=== PATIENT | male | born 1940 | race Caucasian/White ===

== ENCOUNTER 2016-12-10 08:04 | Emergency (ER) | payer OTHER ==
[2016-12-10 08:14] VITALS: BP 155/98; PULSE 72; TEMP 97.7; BMI 25.8
--- NOTE | 2016-12-10 08:31 | PDOC ---
History of Present Illness - General Chief Complaint: Weakness Stated Complaint: WEAKNESS Time Seen by Provider: 12/10/16 08:08 History Source: Patient Exam Limitations: No Limitations - History of Present Illness Initial Comments: 12/10/16 08:31 76y M presents for evaluation of intermittent malaise/fatigue, intermittent tingling of his hands/feet that tends to be worse in the morning and improves mildly throughout the day. 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 Pt states his sypmtoms have caused him to take disability as he cant work. HE came today hoping to get amditted to the hosptial for diagnosis of his symptoms. Pt denies any worsening of his symptoms. Pt denies asociated headache, neck pain, back pain, fever/chills, vision changes, cp, sob, abd pain (pt notes occasional dicomfort at the hernia site but none currently), extremiity weakness. no known cardiac history former smoker Past History - Past Medical History Allergies/Adverse Reactions: Allergies Allergy/AdvReac Type Severity Reaction Status Date / Time No Known Allergies Allergy Verified 12/10/16 08:07 Home Medications: Ambulatory Orders Gabapentin [Neurontin] 100 mg PO TID 12/10/16 Anemia: No Asthma: No Cancer: No Cardiac Disorders: No CVA: No COPD: No CHF: No Dementia: No Diabetes: No GI Disorders: No Disorders: No HTN: No Hypercholesterolemia: No Liver Disease: No Seizures: No Thyroid Disease: No Other medical history: NEUROPATHY - Surgical History Abdominal Surgery: No Appendectomy: No Cardiac Surgery: No Cholecystectomy: No Lung Surgery: No Neurologic Surgery: No Orthopedic Surgery: No - Psycho/Social/Smoking Cessation Hx Anxiety: No Suicidal Ideation: No Smoking History: Former smoker Have you smoked in the past 12 months: No If you are a former smoker, when did you quit?: 1976 Information on smoking cessation initiated: No 'Breaking Loose' booklet given: 09/02/15 Hx Alcohol Use: No Drug/Substance Use Hx: No Substance Use Type: None Hx Substance Use Treatment: No Review of Systems - Review of Systems Able to Perform ROS?: Yes Comments:: 12/10/16 08:35 Constitutional - +malaise/weakness no reported Fever, Chills, HEENT: no reported vision changes, sore throat Respiratory: no reported cough, sob, hemoptysis Cardiac: no reported chest pain, palpitations, light headedness, leg swelling Abd/GI: no reported abd pain, nausea, vomiting, blood per rectum, melena, diarrhea : no reported dysuria, frequency, discharge Musculskelatal - no reported back pain, joint swelling skin - no reported bruising, erythema, rash neurological: +tingling, no reported headache, numbness, focal weakness, ataxia , hematologic: no reported anemia, easy bruising, easy bleeding *Physical Exam - Vital Signs Last Vital Signs Temp Pulse Resp BP Pulse Ox 97.7 F 72 18 155/98 98 12/10/16 08:10 12/10/16 08:10 12/10/16 08:10 12/10/16 08:10 12/10/16 08:10 - Physical Exam Comments: 12/10/16 08:35 GENERAL: The patient is awake, alert, and fully oriented, Nontoxic - in no acute distress. HEAD: Normocephalic, atraumatic. EYES: extraocular movements intact, sclera anicteric, conjunctiva clear. ENT: Normal voice, Moist mucous membranes. NECK: Normal range of motion, supple BACK: no focal midline or parspinal tenderness along spine. LUNGS: Breath sounds equal, clear to auscultation bilaterally. No wheezes, no rhonchi, no rales. HEART: Regular rate and rhythm, normal S1 and S2 without murmur, rub or gallop. ABDOMEN: Soft, nontender, normoactive bowel sounds. No guarding, no rebound. . No CVA tenderness EXTREMITIES: Normal range of motion, no edema. No clubbing or cyanosis. No cords, erythema, or tenderness. PSYCH: Normal mood, normal affect. SKIN: Warm, Dry, normal turgor NEURO: Mental status: The patient is oriented x3. Cranial nerves: Cranial nerves II through XII are intact Motor: The upper extremities are 5 over 5 in all muscle groups. The lower extremities are 5 over 5 in all muscle groups. Negative pronator drift Sensation: Sensation is intact to light touch throughout. romberg negative Gait: Normal. Heel and toe walking are normal. Tandem gait is normal. Medical Decision Making - Medical Decision Making 12/10/16 08:36 unclear cuase of the pts symptoms offered to draw labs for the pt, but pt states if he will not get admitted he does not want lab work. will dfer lab work at this time as pt has had multiple blood work in the past and has had no change in his chronic sypmtoms will have pt fu with his PMD and neurologist will have pt continue taking his gabapentin Return precautions were discussed I discussed the physical exam findings, ancillary test results and final diagnoses with the patient. I answered all of the patient's questions. The patient was satisfied with the care received and felt comfortable with the discharge plan and treatment plan. The patient will call their primary care physician within 24 hours to arrange follow-up and will return to the Emergency Department with any new, persistent or worsening symptoms. *DC/Admit/Observation/Transfer Diagnosis at time of Disposition: Malaise and fatigue, Paresthesias - Discharge Dispostion Condition at time of disposition: Stable Admit: No - Referrals Referrals: Curt Valiente MD [Primary Care Provider] - - Patient Instructions Printed Discharge Instructions: DI for Numbness/tingling Additional Instructions: Return to the emergency department immediately with ANY new, persistent or worsening symptoms. Continue taking your mediations as prescribed by your neurologist You MUST call and follow up with your doctor and your neurologist as scheduled for further evaluation of your symptoms. Results were discussed with you. Please make sure your doctor reviews the results of your emergency evaluation. Print Language: MACEDONIAN
== END 2016-12-10 08:38 | disposition home or self-care (01) ==
LOC: FER 08:04
DX: R53.81 Other malaise (principal); R53.83 Other fatigue; R20.2 Paresthesia of skin; Z87.891 Personal history of nicotine dependence
CPT/HCPCS: 99281-25

== ENCOUNTER 2017-08-20 20:39 | Emergency (ER) | payer OTHER ==
[2017-08-20 20:56] VITALS: BP 170/88; PULSE 83; TEMP 97.8; BMI 25.1
[2017-08-20 21:19] LABS: BASO % 0.3 % (0-2.0); EOS % 1.3 % (0-4.5); LYMPH % 28.6 % (8-40); MCH 30.5 pg (25.7-33.7); MCHC 34.2 g/dl (32.0-35.9); MEAN CELL VOLUME 89.1 fl (80-96); MEAN PLT VOLUME 7.4 fl (7.5-11.1); MONO % 10.1 % (3.8-10.2); NEUT % 59.7 % (42.8-82.8); PLATELET COUNT 335 K/MM3 (134-434); RDW 12.4 % (11.9-15.9); WHITE BLOOD COUNT 10.9 K/mm3 (4.0-10.8)
--- NOTE | 2017-08-20 21:29 | PDOC ---
History of Present Illness - General History Source: Patient, Old Records Exam Limitations: No Limitations - History of Present Illness Initial Comments: 08/20/17 21:30 The patient is a 77 year old male, who presents to the emergency department with shortness of breath onset today. He reports that he attempted to go to sleep multiple times today but was unable due to the shortness of breath. He denies any recent illness or recent travel. He states that he currently also feels generally weak but notes that he has been eating well. He denies any history of depression but reports that he does feel "down". On presentation the patient is agitated and depressed at baseline but denies any suicidal or homicidal ideation. The patient denies chest pain, headache and dizziness. Denies fever, chills, nausea, vomit, diarrhea and constipation. Denies dysuria, frequency, urgency and hematuria. PAST MEDICAL HISTORY: Neuropathy PAST SURGICAL HISTORY: Inguinal hernia repair FAMILY HISTORY: no pertinent history SOCIAL HISTORY: Pt lives with family and is employed. MEDICATIONS: reviewed ALLERGIES: As per nursing notes General: No fevers or chills, no weakness, no weight loss HEENT: No change in vision. No sore throat,. No ear pain CardioVascular: (+) Shortness of breath. No chest pain Respiratory: No cough, or wheezing. Gastrointestinal: no nausea, vomiting, diarrhea or constipation, No rectal bleeding Genitourinary: No dysuria, hematuria, or frequency Musculoskeletal: No joint or muscle pain or swelling Neurologic: No headache, vertigo, dizziness or loss of consciousness Psychiatric: nor depression Skin: No rashes or easy bruising Endocrine: no increased thirst or abnormal weight change Allergic: no skin or latex allergy All other systems reviewed and normal General: Well-nourished well-developed individual, no acute distress HEENT: Throat: Normal, tonsils normal, no erythema or exudate Neck: Supple, no meningeal signs, no lymphadenopathy Eyes::Pupils equal reactive and round, extraocular motion intact Chest: Nontender to palpation Cardiac: S1-S2 normal, regular rate and rhythm, no murmurs rubs or gallops Respiratory: Lungs clear to auscultation bilateral Abdomen: Soft, nondistended, normal bowel sounds, nontender to palpation diffusely Extremities: Warm, dry, no cyanosis, clubbing, or edema Skin: No rashes Neuro: Alert and oriented x3, nonfocal exam, grossly intact, normal gait Psych: Normal mood and affect <Pete Davis - Last Filed: 08/20/17 21:37> - General History Source: Patient Exam Limitations: No Limitations - History of Present Illness Initial Comments: A portion of this note was documented by scribe services under my direction. I have reviewed the details of the note, within reason, and agree with the documentation. The case summary and management plan written by me. Assessment and plan: This is an 7-year-old male who comes in with some vague complaints of not feeling well. When pressed patient I decided that he might be short of breath but then decided he wasn't. Other than that he appeared to be somewhat depressed and said he was having difficulty sleeping. Patient however denied being suicidal or homicidal. Patient had a basic workup including echocardiogram and blood work which was negative with the exception of a potassium of 3.3. Patient was told to get some bananas and eat a banana a day and follow-up with his primary care doctor. Patient was discharged home. <Octaviano Taylor I - Last Filed: 08/20/17 22:58> - General Chief Complaint: Shortness of Breath Stated Complaint: SOB Time Seen by Provider: 08/20/17 20:47 Past History <Pete Davis - Last Filed: 08/20/17 21:37> - Past Medical History Anemia: No Asthma: No Cancer: No Cardiac Disorders: No CVA: No COPD: No CHF: No Dementia: No Diabetes: No GI Disorders: No Disorders: No HTN: No Hypercholesterolemia: No Liver Disease: No Psychiatric Problems: Yes Seizures: No Thyroid Disease: No Other medical history: NEUROPATHY - Surgical History Abdominal Surgery: Yes (INGUINAL HERNIA) Appendectomy: No Cardiac Surgery: No Cholecystectomy: No Lung Surgery: No Neurologic Surgery: No Orthopedic Surgery: No - Suicide/Smoking/Psychosocial Hx Smoking History: Former smoker Have you smoked in the past 12 months: No If you are a former smoker, when did you quit?: 1976 Information on smoking cessation initiated: No 'Breaking Loose' booklet given: 09/02/15 Hx Alcohol Use: No Drug/Substance Use Hx: No Substance Use Type: None Hx Substance Use Treatment: No <Octaviano Taylor I - Last Filed: 08/20/17 22:58> - Past Medical History Allergies/Adverse Reactions: Allergies Allergy/AdvReac Type Severity Reaction Status Date / Time No Known Allergies Allergy Verified 08/20/17 20:40 Home Medications: Ambulatory Orders Gabapentin 300 mg PO 2 CAPS HS capsule 12/11/16 Duloxetine HCl 60 mg PO BID 01/23/17 *Physical Exam - Vital Signs Last Vital Signs Temp Pulse Resp BP Pulse Ox 97.8 F 83 18 170/88 99 08/20/17 20:40 08/20/17 20:40 08/20/17 20:40 08/20/17 20:40 08/20/17 20:40 <Pete Davis - Last Filed: 08/20/17 21:37> - Vital Signs Last Vital Signs Temp Pulse Resp BP Pulse Ox 97.8 F 83 18 170/88 99 08/20/17 20:40 08/20/17 20:40 08/20/17 20:40 08/20/17 20:40 08/20/17 20:40 <Octaviano Taylor I - Last Filed: 08/20/17 22:58> ED Treatment Course - LABORATORY CBC & Chemistry Diagram: 08/20/17 20:40 08/20/17 20:40 - ADDITIONAL ORDERS Additional order review: 08/20/17 20:40 RBC 4.60 MCV 89.1 MCHC 34.2 RDW 12.4 MPV 7.4 L Neutrophils % 59.7 Lymphocytes % 28.6 Monocytes % 10.1 Eosinophils % 1.3 Basophils % 0.3 <Pete Davis - Last Filed: 08/20/17 21:37> - LABORATORY CBC & Chemistry Diagram: 08/20/17 20:40 08/20/17 20:40 - ADDITIONAL ORDERS Additional order review: 08/20/17 20:40 RBC 4.60 MCV 89.1 MCHC 34.2 RDW 12.4 MPV 7.4 L Neutrophils % 59.7 Lymphocytes % 28.6 Monocytes % 10.1 Eosinophils % 1.3 Basophils % 0.3 <Octaviano Taylor I - Last Filed: 08/20/17 22:58> *DC/Admit/Observation/Transfer - Attestations Scribe Attestion: 08/20/17 21:31 Documentation prepared by Pete Davis, acting as medical insurance claims processor for Octaviano Taylor MD <Pete Davis - Last Filed: 08/20/17 21:37> - Discharge Dispostion Admit: No <Octaviano Taylor I - Last Filed: 08/20/17 22:58> Diagnosis at time of Disposition: Shortness of breath - Discharge Dispostion Disposition: HOME Condition at time of disposition: Stable - Referrals Referrals: Curt Valiente MD [Primary Care Provider] - - Patient Instructions Additional Instructions: Return to the emergency department immediately with ANY new, persistent or worsening symptoms. Continue any medications as previously prescribed by your physician. You should follow up with your primary doctor as soon as possible regarding today's emergency department visit. . Please make sure your doctor reviews the results of your emergency evaluation. Thank you for coming to the Emergency Department today for your care. It was a pleasure to see you today. Please note that your evaluation is INCOMPLETE until you follow-up with your doctor. - Post Discharge Activity
[2017-08-20 21:30] LABS: ALBUMIN 4.1 g/dl (3.5-5.0); ALK PHOS 83 U/L (32-92); ANION GAP 10 (8-16); BLOOD UREA NITROGEN 13 mg/dl (7-18); CALCIUM 9.4 mg/dl (8.4-10.2); CHLORIDE 102 mmol/L (98-107); CO2 22 mmol/L (22-28); CREATININE 1.3 mg/dl (0.6-1.3); GLUCOSE,RANDOM 91 mg/dl (74-106); POTASSIUM 3.3 mmol/L (3.5-5.1); SGOT/AST 25 U/L (10-42); SGPT/ALT 12 U/L (10-40); SODIUM 134 mmol/L (136-145); TOT PROT 7.2 g/dl (6.4-8.3)
--- NOTE | 2017-08-21 11:39 | EKG ---
Test Reason : Blood Pressure : / mmHG Vent. Rate : 078 BPM Atrial Rate : 078 BPM P-R Int : 162 ms QRS Dur : 112 ms QT Int : 428 ms P-R-T Axes : 070 -14 055 degrees QTc Int : 487 ms NORMAL SINUS RHYTHM NONSPECIFIC ST ABNORMALITY PROLONGED QT ABNORMAL ECG NO PREVIOUS ECGS AVAILABLE Confirmed by PEYTON MCGARRY MD ([id number]) on 08/21/2017 11:39:04 AM Referred By: DR RAUSCH Confirmed By:PEYTON MCGARRY MD
== END 2017-08-20 21:44 | disposition home or self-care (01) ==
LOC: FER 20:39
DX: R06.02 Shortness of breath (principal); F99 Mental disorder, not otherwise specified; Z87.891 Personal history of nicotine dependence
CPT/HCPCS: 36415; 80053; 82550; 84484; 85025; 93005; 99282-25

== ENCOUNTER 2021-05-16 12:39 | Emergency (ER) | payer OTHER ==
[2021-05-16 13:06] VITALS: BP 121/69; PULSE 72; TEMP 97.6; BMI 20.9
[2021-05-16 15:13] LABS: CHLORIDE 105 mmol/L (98-107); SODIUM 139 mmol/L (136-145)
[2021-05-16 15:19] LABS: ALBUMIN 2.9 g/dl (3.4-5.0); ANION GAP 10 MMOL/L (8-16); CALCIUM 8.6 mg/dL (8.5-10.1); CO2 25 mmol/L (21-32); GLUCOSE,RANDOM 87 mg/dL (74-106)
[2021-05-16 15:20] LABS: BLOOD UREA NITROGEN 17.3 mg/dL (7-18); MAGNESIUM 2.4 mg/dL (1.8-2.4)
[2021-05-16 15:22] LABS: SGOT/AST 53 U/L (15-37); SGPT/ALT 21 U/L (13-61)
[2021-05-16 15:23] LABS: CREATININE 1.1 mg/dL (0.55-1.3)
[2021-05-16 15:24] LABS: BILIRUBIN,TOTAL 1.7 mg/dL (0.2-1)
[2021-05-16 15:25] LABS: ALK PHOS 132 U/L (45-117)
[2021-05-16 15:28] LABS: N-TERMINAL BNP 398.3 pg/ml (5-450)
== END 2021-05-16 16:22 | disposition left against medical advice (07) ==
LOC: JER 12:39
DX: S39.92XA Unspecified injury of lower back, initial encounter (principal); W19.XXXA Unspecified fall, initial encounter
CPT/HCPCS: 36415; 71045-TC-FY; 72170-TC-FY; 80053; 82550; 82553; 83735; 83880; 84484; 93005; 93010; 99285-25

== ENCOUNTER 2021-12-14 12:42 | Observation (INO) | payer OTHER ==
[2021-12-14 17:01] LABS: HEMATOCRIT 35.2 % (35.4-49); HEMOGLOBIN 12.2 G/dL (11.7-16.9); MCH 30.6 pg (25.7-33.7); MCHC 34.7 g/dl (32.0-35.9); MEAN CELL VOLUME 88.2 fl (80-96); MEAN PLT VOLUME 6.6 fl (7.5-11.1); PLATELET COUNT 342.2 10^3/uL (134-434); RBC 3.99 10^6/uL (4.00-5.60); RDW 14.5 % (11.9-15.9); WHITE BLOOD COUNT 9.7 10^3/uL (4.0-10.8)
[2021-12-14 17:05] LABS: PLATELET ESTIMATE ADEQUATE
[2021-12-14 17:23] LABS: ALBUMIN 3.9 g/dl (3.4-5.0); BILIRUBIN,TOTAL 0.4 mg/dl (0.2-1); CALCIUM 9.7 mg/dl (8.5-10); CREATININE 1.1 mg/dl (0.55-1.3); TOT PROT 7.1 g/dl (6.4-8.2)
[2021-12-14] MEDS ORDERED: ACETAMINOPHEN 325 MG TABLET (FP) PO PRN (19:27)
[2021-12-14] MEDS ORDERED: POLYETHYLENE GLYCOL (HEALTHYLAX) 3350 17 GM PACKET PO PRN (19:27)
[2021-12-14 21:46] VITALS: BMI 19.2
[2021-12-15 08:01] LABS: INR 0.98 (0.83-1.09); PROTHROMBIN TIME (PATIENT) 11.3 SEC (9.7-13.0)
[2021-12-15 08:04] LABS: ACTIVATED PTT 34.1 SECONDS (25.2-36.5)
[2021-12-15 08:05] LABS: CALCIUM 9.3 mg/dl (8.5-10)
[2021-12-15 08:06] LABS: HEMATOCRIT 35.1 % (35.4-49); HEMOGLOBIN 12.1 G/dL (11.7-16.9); MCH 30.5 pg (25.7-33.7); MCHC 34.4 g/dl (32.0-35.9); MEAN CELL VOLUME 88.7 fl (80-96); MEAN PLT VOLUME 6.7 fl (7.5-11.1); PLATELET COUNT 368.1 10^3/uL (134-434); RBC 3.96 10^6/uL (4.00-5.60); RDW 14.8 % (11.9-15.9); WHITE BLOOD COUNT 7.6 10^3/uL (4.0-10.8)
[2021-12-15] MEDS ORDERED: ENOXAPARIN NA (PORCINE) 40 MG/0.4 ML DISP.SYRIN SQ SCH (10:00)
[2021-12-15 10:27] VITALS: BP 143/64; PULSE 66; TEMP 98.7
== END 2021-12-15 13:00 | disposition home or self-care (01) ==
LOC: FER 12:42 → FM/S 18:30
PROVIDERS: ADMIT Internal Medicine; ATTEND Nurse Practitioner Acute Care
DX: R62.7 Adult failure to thrive (principal); Z68.1 Body mass index [BMI] 19.9 or less, adult; R41.82 Altered mental status, unspecified
CPT/HCPCS: 36415; 70450-TC; 80048; 80053; 81003; 81015; 85025; 85027; 85610; 85730; 87086; 99285-25; C9803-CS; G0378; U0003; U0005

== ENCOUNTER 2022-02-23 04:25 | Inpatient (IN) | payer OTHER ==
[2022-02-23] MEDS ORDERED: HALOPERIDOL LACTATE 5 MG/ML IM ONE ×2 (05:36→07:48)
[2022-02-23] MEDS ORDERED: HALOPERIDOL LACTATE 5 MG/ML ONE ×2 (05:38→07:49)
[2022-02-23 07:19] LABS: BASO % 0.4 % (0-2.0); EOS % 0.7 % (0-4.5); HEMATOCRIT 37.3 % (35.4-49); HEMOGLOBIN 12.7 GM/dL (11.7-16.9); LYMPH % 20.6 % (8-40); MCH 29.3 pg (25.7-33.7); MEAN CELL VOLUME 86.3 fl (80-96); NEUT % 68.3 % (42.8-82.8); PLATELET COUNT 377 10^3/uL (134-434); RBC 4.32 M/mm3 (4.00-5.60); RDW 13.5 % (11.9-15.9)
[2022-02-23] MEDS ORDERED: OLANZapine 5 MG TABLET PO ONE (07:19)
[2022-02-23] MEDS ORDERED: OLANZapine 10 MG TABLET ONE (07:33)
[2022-02-23 07:37] LABS: CALCIUM 8.8 mg/dL (8.5-10.1)
[2022-02-23 07:38] LABS: ALBUMIN 3.4 g/dl (3.4-5.0); BLOOD UREA NITROGEN 21.4 mg/dL (7-18)
[2022-02-23 07:41] LABS: CREATININE 1.2 mg/dL (0.55-1.3)
[2022-02-23 07:43] LABS: TOT PROT 7.2 g/dl (6.4-8.2)
[2022-02-23] MEDS ORDERED: MIDAZOLAM HCL 2 MG/2 ML SINGLE DOSE VIAL IM ONE (08:37)
[2022-02-23] MEDS ORDERED: MIDAZOLAM HCL 2 MG/2 ML SINGLE DOSE VIAL ONE (08:40)
[2022-02-23 11:22] LABS: EPI CELLS 28 /uL (0-25.1); HYALINE CASTS 2 /uL (0-3.1); URINE APPEARANCE CLEAR; URINE BACTERIA 7 /uL (0-1359); URINE BILIRUBIN NEGATIVE (NEGATIVE); URINE COLOR YELLOW; URINE GLUCOSE (UA) NEGATIVE (NEGATIVE); URINE KETONE TRACE (NEGATIVE); URINE LEUK ESTERASE NEGATIVE (NEGATIVE); URINE NITRITE NEGATIVE (NEGATIVE); URINE PROTEIN TRACE (NEGATIVE); URINE RBC 176 /uL (0-23.9); URINE UROBILINOGEN 0.2 mg/dL (0.2-1.0); URINE WBC 11 /uL (0-25.8)
[2022-02-23] MEDS ORDERED: SODIUM CHLORIDE 1,000 ML IV SCH (12:15)
[2022-02-23 13:37] LABS: PHENCYCLIDINE,URINE NEGATIVE (NEGATIVE)
[2022-02-23 13:39] LABS: URINE BARBITURATES NEGATIVE (NEGATIVE)
[2022-02-23 13:44] LABS: COCAINE, UR POSITIVE (NEGATIVE); METHADONE, UR POSITIVE (NEGATIVE); OPIATES, URI POSITIVE (NEGATIVE); URINE AMPHETAMINES POSITIVE (NEGATIVE); URINE BENZODIAZEPINES POSITIVE (NEGATIVE)
[2022-02-23 14:53] VITALS: BMI 19.3
[2022-02-23] MEDS: HEPARIN NA (PORCINE) 5,000 UNITS/ML 1ML VIAL SQ SCH ×2 (15:44→22:19)
[2022-02-23] MEDS ORDERED: LORazepam 2 MG/ML SDV VIAL IVPUSH ONE (15:56)
[2022-02-24] MEDS: HEPARIN NA (PORCINE) 5,000 UNITS/ML 1ML VIAL SQ SCH ×3 (05:48→22:14)
[2022-02-24 08:37] LABS: INR 1.11 (0.83-1.09); PROTHROMBIN TIME (PATIENT) 12.8 SEC (9.7-13.0)
[2022-02-24 08:41] LABS: BASO % 1.3 % (0-2.0); EOS % 0.2 % (0-4.5); HEMATOCRIT 37.5 % (35.4-49); HEMOGLOBIN 12.4 GM/dL (11.7-16.9); LYMPH % 15.3 % (8-40); MCH 28.8 pg (25.7-33.7); MCHC 33.1 g/dl (32.0-35.9); MEAN CELL VOLUME 87.1 fl (80-96); MEAN PLT VOLUME 8.3 fl (7.5-11.1); MONO % 5.7 % (3.8-10.2); NEUT % 77.5 % (42.8-82.8); PLATELET COUNT 386 10^3/uL (134-434); RDW 13.3 % (11.9-15.9); WHITE BLOOD COUNT 12.9 K/mm3 (4.0-10.0)
[2022-02-24 08:49] LABS: ALBUMIN 3.3 g/dl (3.4-5.0); BLOOD UREA NITROGEN 16.6 mg/dL (7-18); CALCIUM 8.8 mg/dL (8.5-10.1)
[2022-02-24 08:54] LABS: BILIRUBIN,TOTAL 1.4 mg/dL (0.2-1); TOT PROT 6.7 g/dl (6.4-8.2)
[2022-02-24 09:26] LABS: MAGNESIUM 1.9 mg/dL (1.8-2.4)
[2022-02-24 09:30] LABS: PHOSPHOROUS 2.6 mg/dL (2.5-4.9)
[2022-02-24 11:52] LABS: PHENCYCLIDINE,URINE NEGATIVE (NEGATIVE)
[2022-02-24 11:53] LABS: COCAINE, UR NEGATIVE (NEGATIVE); OPIATES, URI NEGATIVE (NEGATIVE); URINE BARBITURATES NEGATIVE (NEGATIVE)
[2022-02-24 12:03] LABS: METHADONE, UR NEGATIVE (NEGATIVE); URINE AMPHETAMINES NEGATIVE (NEGATIVE); URINE BENZODIAZEPINES POSITIVE (NEGATIVE)
[2022-02-24] MEDS: LORazepam 1 MG TABLET PO PRN ×2 (22:14→22:20)
[2022-02-25] MEDS: HEPARIN NA (PORCINE) 5,000 UNITS/ML 1ML VIAL SQ SCH ×3 (06:32→22:50)
[2022-02-25 09:56] LABS: BASO % 0.9 % (0-2.0); EOS % 0.6 % (0-4.5); HEMOGLOBIN 12.6 GM/dL (11.7-16.9); LYMPH % 18.4 % (8-40); MCH 29.1 pg (25.7-33.7); MCHC 33.1 g/dl (32.0-35.9); MEAN CELL VOLUME 87.9 fl (80-96); MEAN PLT VOLUME 7.9 fl (7.5-11.1); MONO % 6.8 % (3.8-10.2); NEUT % 73.3 % (42.8-82.8); PLATELET COUNT 388 10^3/uL (134-434); RBC 4.32 M/mm3 (4.00-5.60); RDW 14.1 % (11.9-15.9); WHITE BLOOD COUNT 8.9 K/mm3 (4.0-10.0)
[2022-02-25 10:00] LABS: ALBUMIN 3.1 g/dl (3.4-5.0); BLOOD UREA NITROGEN 23.2 mg/dL (7-18); CALCIUM 9.2 mg/dL (8.5-10.1); MAGNESIUM 2.2 mg/dL (1.8-2.4)
[2022-02-25 10:04] LABS: CREATININE 1.1 mg/dL (0.55-1.3)
[2022-02-25 10:05] LABS: BILIRUBIN,TOTAL 1.5 mg/dL (0.2-1); TOT PROT 6.5 g/dl (6.4-8.2)
[2022-02-26] MEDS ORDERED: LORazepam 0.5 MG TABLET PO PRN
[2022-02-26] MEDS: HEPARIN NA (PORCINE) 5,000 UNITS/ML 1ML VIAL SQ SCH ×3 (06:34→21:31)
[2022-02-27] MEDS: HEPARIN NA (PORCINE) 5,000 UNITS/ML 1ML VIAL SQ SCH ×3 (06:30→21:48)
[2022-02-27 08:31] LABS: BASO % 1.2 % (0-2.0); EOS % 1.6 % (0-4.5); HEMOGLOBIN 12.5 GM/dL (11.7-16.9); LYMPH % 22.3 % (8-40); MCH 29.2 pg (25.7-33.7); MCHC 33.9 g/dl (32.0-35.9); MEAN CELL VOLUME 86.2 fl (80-96); MEAN PLT VOLUME 8.3 fl (7.5-11.1); MONO % 8.1 % (3.8-10.2); NEUT % 66.8 % (42.8-82.8); PLATELET COUNT 360 10^3/uL (134-434); RBC 4.29 M/mm3 (4.00-5.60); RDW 13.4 % (11.9-15.9); WHITE BLOOD COUNT 7.4 K/mm3 (4.0-10.0)
[2022-02-27 08:59] LABS: CALCIUM 9.3 mg/dL (8.5-10.1); MAGNESIUM 2.4 mg/dL (1.8-2.4)
[2022-02-27 09:00] LABS: ALBUMIN 3.1 g/dl (3.4-5.0)
[2022-02-27 09:01] LABS: TOT PROT 6.4 g/dl (6.4-8.2)
[2022-02-27 09:02] LABS: BLOOD UREA NITROGEN 15.7 mg/dL (7-18)
[2022-02-27 09:03] LABS: PHOSPHOROUS 3.5 mg/dL (2.5-4.9)
[2022-02-27] MEDS ORDERED: REMDESIVIR 200 MG in SODIUM CHLORIDE 250 ML IVPB ONE (09:17)
[2022-02-27] MEDS: KCL 10 MEQ IVPB 10 MEQ/100 ML INFUS.BAG IVPB SCH ×3 (15:18→18:32)
[2022-02-28] MEDS: HEPARIN NA (PORCINE) 5,000 UNITS/ML 1ML VIAL SQ SCH ×3 (05:58→21:46)
[2022-02-28] MEDS ORDERED: REMDESIVIR 100 MG in SODIUM CHLORIDE 270 ML IVPB ONE (09:19)
[2022-02-28 09:58] LABS: BASO % 1.3 % (0-2.0); EOS % 1.3 % (0-4.5); LYMPH % 21.7 % (8-40); MCH 29.2 pg (25.7-33.7); MCHC 33.4 g/dl (32.0-35.9); MEAN CELL VOLUME 87.5 fl (80-96); MEAN PLT VOLUME 8.5 fl (7.5-11.1); MONO % 8.6 % (3.8-10.2); NEUT % 67.1 % (42.8-82.8); PLATELET COUNT 392 10^3/uL (134-434); RBC 4.45 M/mm3 (4.00-5.60); RDW 13.5 % (11.9-15.9); WHITE BLOOD COUNT 7.6 K/mm3 (4.0-10.0)
[2022-02-28 10:21] LABS: BLOOD UREA NITROGEN 13.6 mg/dL (7-18); CALCIUM 9.2 mg/dL (8.5-10.1); MAGNESIUM 1.9 mg/dL (1.8-2.4)
[2022-02-28 10:22] LABS: ALBUMIN 3.2 g/dl (3.4-5.0)
[2022-02-28 10:25] LABS: PHOSPHOROUS 2.8 mg/dL (2.5-4.9)
[2022-02-28 10:26] LABS: BILIRUBIN,TOTAL 0.8 mg/dL (0.2-1); TOT PROT 6.8 g/dl (6.4-8.2)
[2022-02-28] MEDS: REMDESIVIR 100 MG in SODIUM CHLORIDE 250 ML IVPB SCH (16:04)
[2022-03-01] MEDS: HEPARIN NA (PORCINE) 5,000 UNITS/ML 1ML VIAL SQ SCH ×3 (06:04→21:27)
[2022-03-01] MEDS ORDERED: REMDESIVIR 100 MG in SODIUM CHLORIDE 270 ML IVPB ONE (09:19)
[2022-03-01] MEDS: REMDESIVIR 100 MG in SODIUM CHLORIDE 250 ML IVPB SCH (09:27)
[2022-03-01 10:29] LABS: BASO % 0.7 % (0-2.0); EOS % 1.2 % (0-4.5); HEMATOCRIT 36.5 % (35.4-49); HEMOGLOBIN 12.1 GM/dL (11.7-16.9); LYMPH % 17.1 % (8-40); MCH 28.9 pg (25.7-33.7); MCHC 33.3 g/dl (32.0-35.9); MEAN CELL VOLUME 86.9 fl (80-96); MEAN PLT VOLUME 7.7 fl (7.5-11.1); MONO % 10.1 % (3.8-10.2); NEUT % 70.9 % (42.8-82.8); PLATELET COUNT 346 10^3/uL (134-434); RDW 13.8 % (11.9-15.9); WHITE BLOOD COUNT 7.8 K/mm3 (4.0-10.0)
[2022-03-01 11:12] LABS: CALCIUM 8.7 mg/dL (8.5-10.1)
[2022-03-01 11:13] LABS: BLOOD UREA NITROGEN 16.8 mg/dL (7-18); MAGNESIUM 2.1 mg/dL (1.8-2.4)
[2022-03-01 11:16] LABS: PHOSPHOROUS 3.3 mg/dL (2.5-4.9)
[2022-03-01 11:17] LABS: BILIRUBIN,TOTAL 0.6 mg/dL (0.2-1); TOT PROT 6.1 g/dl (6.4-8.2)
[2022-03-02] MEDS: HEPARIN NA (PORCINE) 5,000 UNITS/ML 1ML VIAL SQ SCH (05:07)
[2022-03-02 10:33] LABS: BASO % 0.6 % (0-2.0); EOS % 1.9 % (0-4.5); HEMATOCRIT 35.7 % (35.4-49); HEMOGLOBIN 12.4 GM/dL (11.7-16.9); MCH 30.3 pg (25.7-33.7); MCHC 34.7 g/dl (32.0-35.9); MEAN CELL VOLUME 87.4 fl (80-96); MEAN PLT VOLUME 7.7 fl (7.5-11.1); MONO % 8.9 % (3.8-10.2); NEUT % 68.6 % (42.8-82.8); PLATELET COUNT 328 10^3/uL (134-434); RBC 4.08 M/mm3 (4.00-5.60); RDW 13.6 % (11.9-15.9); WHITE BLOOD COUNT 7.5 K/mm3 (4.0-10.0)
[2022-03-02 11:11] LABS: CALCIUM 8.6 mg/dL (8.5-10.1)
[2022-03-02 11:12] LABS: ALBUMIN 2.8 g/dl (3.4-5.0); BLOOD UREA NITROGEN 14.6 mg/dL (7-18); MAGNESIUM 1.9 mg/dL (1.8-2.4)
[2022-03-02 11:14] LABS: CREATININE 0.9 mg/dL (0.55-1.3); PHOSPHOROUS 3.3 mg/dL (2.5-4.9)
[2022-03-02 11:17] LABS: BILIRUBIN,TOTAL 0.7 mg/dL (0.2-1)
[2022-03-02] MEDS: LORazepam 1 MG TABLET PO PRN ×2 (17:08→22:11)
[2022-03-02] MEDS: MELATONIN 5 MG TABLETS PO PRN (22:11)
[2022-03-03] MEDS: LORazepam 1 MG TABLET PO PRN ×2 (05:45→13:09)
[2022-03-03 11:34] LABS: BASO % 0.9 % (0-2.0); EOS % 1.3 % (0-4.5); HEMATOCRIT 39.1 % (35.4-49); HEMOGLOBIN 13.5 GM/dL (11.7-16.9); LYMPH % 23.1 % (8-40); MCH 30.3 pg (25.7-33.7); MCHC 34.5 g/dl (32.0-35.9); MEAN CELL VOLUME 87.8 fl (80-96); MEAN PLT VOLUME 8.3 fl (7.5-11.1); MONO % 9.7 % (3.8-10.2); PLATELET COUNT 359 10^3/uL (134-434); RBC 4.46 M/mm3 (4.00-5.60); RDW 13.9 % (11.9-15.9); WHITE BLOOD COUNT 8.6 K/mm3 (4.0-10.0)
[2022-03-03 12:00] LABS: BLOOD UREA NITROGEN 17.8 mg/dL (7-18); CALCIUM 9.6 mg/dL (8.5-10.1); MAGNESIUM 2.1 mg/dL (1.8-2.4)
[2022-03-03 12:04] LABS: PHOSPHOROUS 3.1 mg/dL (2.5-4.9)
[2022-03-03 12:05] LABS: BILIRUBIN,TOTAL 0.6 mg/dL (0.2-1); TOT PROT 7.2 g/dl (6.4-8.2)
[2022-03-03 12:07] LABS: ALBUMIN 3.6 g/dl (3.4-5.0)
[2022-03-03] MEDS ORDERED: LORazepam 1 MG TABLET PO ONE (22:07)
[2022-03-03] MEDS: MELATONIN 5 MG TABLETS PO PRN (22:12)
[2022-03-04 08:33] LABS: EOS % 1.8 % (0-4.5); HEMOGLOBIN 12.4 GM/dL (11.7-16.9); LYMPH % 17.6 % (8-40); MCH 29.2 pg (25.7-33.7); MCHC 33.5 g/dl (32.0-35.9); MEAN CELL VOLUME 87.1 fl (80-96); MEAN PLT VOLUME 7.7 fl (7.5-11.1); MONO % 9.6 % (3.8-10.2); PLATELET COUNT 339 10^3/uL (134-434); RBC 4.26 M/mm3 (4.00-5.60); RDW 13.8 % (11.9-15.9)
[2022-03-04] MEDS ORDERED: LORazepam 1 MG TABLET PO PRN ×2 (08:39→11:15)
[2022-03-04 08:51] LABS: ALBUMIN 3.1 g/dl (3.4-5.0)
[2022-03-04 08:52] LABS: MAGNESIUM 2.1 mg/dL (1.8-2.4)
[2022-03-04 08:54] LABS: PHOSPHOROUS 3.1 mg/dL (2.5-4.9)
[2022-03-04 08:56] LABS: BILIRUBIN,TOTAL 0.9 mg/dL (0.2-1); TOT PROT 6.3 g/dl (6.4-8.2)
[2022-03-04 21:55] VITALS: RESP 20
[2022-03-05] MEDS ORDERED: INSULIN (LEVEMIR) 100 UNITS/ML UNITS SQ ONE (06:27)
[2022-03-05] MEDS ORDERED: INSULIN (NOVOLOG) ASPART 100 UNITS/ML 10ML VIAL ONE (06:27)
[2022-03-05 09:37] LABS: EOS % 1.3 % (0-4.5); HEMOGLOBIN 12.3 GM/dL (11.7-16.9); MCH 29.1 pg (25.7-33.7); MCHC 33.1 g/dl (32.0-35.9); MEAN CELL VOLUME 87.8 fl (80-96); MEAN PLT VOLUME 7.5 fl (7.5-11.1); MONO % 9.2 % (3.8-10.2); NEUT % 72.5 % (42.8-82.8); PLATELET COUNT 337 10^3/uL (134-434); RBC 4.21 M/mm3 (4.00-5.60); RDW 13.8 % (11.9-15.9)
[2022-03-05 10:12] LABS: ALBUMIN 2.9 g/dl (3.4-5.0); CREATININE 1.1 mg/dL (0.55-1.3)
[2022-03-05 10:13] LABS: BLOOD UREA NITROGEN 18.1 mg/dL (7-18)
[2022-03-05 10:14] LABS: BILIRUBIN,TOTAL 0.8 mg/dL (0.2-1); CALCIUM 8.8 mg/dL (8.5-10.1); MAGNESIUM 2.3 mg/dL (1.8-2.4); TOT PROT 6.2 g/dl (6.4-8.2)
[2022-03-05 10:17] LABS: PHOSPHOROUS 2.7 mg/dL (2.5-4.9)
[2022-03-05] MEDS: MELATONIN 5 MG TABLETS PO PRN (20:27)
[2022-03-05 23:20] VITALS: BP 150/77; PULSE 94; TEMP 97.5
== END 2022-03-06 10:45 | DRG 177 ==
LOC: JER 04:25 → JERBED 10:21 → UNDOADMOB 10:21 → INTOOBSV 10:21 → J8W 12:09 → JERBED 14:10 → OBSVTOIN 02-26 13:41
PROVIDERS: ADMIT Internal Medicine; ATTEND Internal Medicine
PROC: XW033E5 Introduction of Remdesivir Anti-infective into Peripheral Vein, Percutaneous Approach, New Technology Group 5 (ICD-10-PCS; principal; 2022-02-27)
DX: U07.1 COVID-19 (principal); G93.41 Metabolic encephalopathy; I44.4 Left anterior fascicular block; D32.9 Benign neoplasm of meninges, unspecified; R45.1 Restlessness and agitation; F19.10 Other psychoactive substance abuse, uncomplicated; R41.0 Disorientation, unspecified; N40.0 Benign prostatic hyperplasia without lower urinary tract symptoms; F41.9 Anxiety disorder, unspecified
CPT/HCPCS: 36415; 70450-TC; 71045-TC-FY; 80053; 80307; 81003; 82140; 83735; 84100; 84443; 84484; 85025; 85610; 85730; 86140; 87086; 91313; 93005; 93010; 97116-GP; 97161-GP; 99285-25; C9399; C9803-CS; G0378; J1644; U0003; U0005